=== PATIENT | female | born 1985 | race Caucasian/White ===

== ENCOUNTER 2019-08-15 07:57 | Emergency (ER) | payer BC, OTHER ==
[2019-08-15] MEDS ORDERED: HYDROCODONE/APAP 10/325 TAB ONE (08:58)
[2019-08-15] MEDS ORDERED: KETOROLAC 30 MG/ML INJ ONE (08:59)
[2019-08-15] MEDS ORDERED: DIAZEPAM 5 MG TABLET ONE (08:59)
[2019-08-15] MEDS ORDERED: ONDANSETRON 4 MG (ODT) TAB ONE (08:59)
--- NOTE | 2019-08-15 09:44 | ER ---
Nurse's Notes [facility] Name: Denise Plata Age: 33 yrs Sex: Female : 1985 Arrival Date: 08/15/2019 Time: 07:58 Bed 15 Private MD: Clyde White Diagnosis: Low back pain Presentation: 08/15 08:08 Presenting complaint: Patient states: "yesterday I was bending over to get a load of aa5 laundry from the washer and I felt my back give out". Pt denies fall, reports pain to lower back that is worse to R lower back. 08:08 Transition of care: patient was not received from another setting of care. Onset of aa5 symptoms was August 14, 2019. Risk Assessment: Do you want to hurt yourself or someone else? Patient reports no desire to harm self or others. Initial Sepsis Screen: Does the patient meet any 2 criteria? No. Patient's initial sepsis screen is negative. Does the patient have a suspected source of infection? No. Patient's initial sepsis screen is negative. Care prior to arrival: None. 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 - Social history:: Smoking status: Patient/guardian denies using tobacco. - Ebola Screening: : No symptoms or risks identified at this time. - Family history:: not pertinent. Screenin:15 Abuse screen: Denies threats or abuse. Nutritional screening: No deficits noted. aa5 Tuberculosis screening: No symptoms or risk factors identified. Fall Risk None identified. Assessment: 08:15 General: Appears uncomfortable, Behavior is calm, cooperative. Pain: Complains of pain aa5 in lumbar area, left low back and right low back Pain does not radiate. Pain currently is 3 out of 10 on a pain scale. at worst was 7 out of 10 on a pain scale. Quality of pain is described as sharp, shooting, Pain began 1 day ago. Is continuous, Aggravated by increased activity. Neuro: Level of Consciousness is awake, alert, obeys commands, Oriented to person, place, time, situation. Cardiovascular: Patient's skin is warm and dry. Respiratory: Airway is patent Respiratory effort is even, unlabored, Respiratory pattern is regular, symmetrical. GI: No signs and/or symptoms were reported involving the gastrointestinal system. : No signs and/or symptoms were reported regarding the genitourinary system. EENT: No signs and/or symptoms were reported regarding the EENT system. Derm: Skin is pink, warm \\T\\ dry. Musculoskeletal: Range of motion: intact in all extremities. 10:02 Reassessment: Patient appears in no apparent distress at this time. Patient is alert, ca1 oriented x 3, equal unlabored respirations, skin warm/dry/pink. Vital Signs: 08:11 BP 118 / 70; Pulse 89; Resp 16 S; Temp 98.2(O); Pulse Ox 100% on R/A; Weight 72.57 kg aa5 (R); Height 5 ft. 3 in. (160.02 cm) (R); Pain 3/10; 09:47 BP 112 / 80; Pulse 67; Resp 15; Temp 98.0(O); Pulse Ox 99% on R/A; mh5 10:20 BP 108 / 64; Pulse 76; Resp 17 S; Pulse Ox 100% on R/A; ca1 08:11 Body Mass Index 28.34 (72.57 kg, 160.02 cm) aa5 ED Course: 07:58 Patient arrived in ED. as 07:58 Clyde White is Private Physician. as 08:08 Arm band placed on Patient placed in an exam room, on a stretcher. aa5 08:10 Vishal Blankenship MD is Attending Physician. enid 08:28 Lyla Becker, ZORAIDA is Primary Nurse. aa5 08:30 Triage completed. aa5 09:11 Lumbar Spine (3 Views) XRAY In Process Unspecified. EDMS 09:47 Milton Flores MD is Referral Physician. enid 09:48 Patient has correct armband on for positive identification. Bed in low position. Call 5 light in reach. Side rails up X 1. Warm blanket given. Pulse ox on. NIBP on. 10:21 Patient did not have IV access during this emergency room visit. ca1 10:21 No provider procedures requiring assistance completed. ca1 Administered Medications: 09:02 Drug: [place] 10 mg-325 mg 1 tabs Route: PO; aa5 10:19 Follow up: Response: No adverse reaction; Pain is decreased; RASS: Alert and Calm (0) ca1 09:02 Drug: Zofran 4 mg Route: PO; aa5 10:19 Follow up: Response: No adverse reaction; Nausea is decreased; RASS: Alert and Calm (0) ca1 09:03 Drug: TORadol 60 mg Route: IM; Site: right gluteus; aa5 10:19 Follow up: Response: No adverse reaction; Pain is decreased ca1 09:03 Drug: Valium 5 mg Route: PO; aa5 10:19 Follow up: Response: No adverse reaction; Pain is decreased; RASS: Alert and Calm (0) ca1 Outcome: 09:43 Discharge ordered by . enid 10:21 Discharged to home ambulatory, with significant other. ca1 10:21 Condition: stable 10:21 Discharge instructions given to patient, Instructed on discharge instructions, follow up and referral plans. no drinking with medication, no driving heavy equipment, medication usage, Demonstrated understanding of instructions, follow-up care, medications, Prescriptions given X 4. 10:21 Patient left the ED. ca1 Signatures: Dispatcher [employer] EDMS Vishal Blankenship MD MD cha Martinez, Amelia as Calderon, Audri, RN RN Haylee Soto [facility] Michelle Dominique RN RN ca1 Corrections: (The following items were deleted from the chart) 08:29 07:58 Arm band placed on [place] [id number]
--- NOTE | 2019-08-15 09:45 | EDPHYS ---
Physician Documentation [facility] Name: Denise Plata Age: 33 yrs Sex: Female : 1985 Arrival Date: 08/15/2019 Time: 07:58 Bed 15 Private MD: Clyde White ED Physician Vishal Blankenship HPI: 08/15 08:39 This 33 yrs old Female presents to ER via Ambulatory with complaints of Back enid Pain. 08:39 The patient presents with pain that is acute, and decreased range of motion. The enid symptoms are located in the low back. Onset: The symptoms/episode began/occurred 2 day(s) ago. The pain does not radiate. Associated signs and symptoms: The patient has no apparent associated signs or symptoms. Modifying factors: The patient symptoms are alleviated by remaining still, rest, the patient symptoms are aggravated by any movement, bending. Severity of symptoms: At their worst the symptoms were moderate. The patient has not experienced similar symptoms in the past. 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 - Social history:: Smoking status: Patient/guardian denies using tobacco. - Ebola Screening: : No symptoms or risks identified at this time. - Family history:: not pertinent. ROS: 08:39 Constitutional: Negative for fever, chills, and weight loss, Eyes: Negative for injury, enid pain, redness, and discharge, ENT: Negative for injury, pain, and discharge, Neck: Negative for injury, pain, and swelling, Cardiovascular: Negative for chest pain, palpitations, and edema, Respiratory: Negative for shortness of breath, cough, wheezing, and pleuritic chest pain, Abdomen/GI: Negative for abdominal pain, nausea, vomiting, diarrhea, and constipation, : Negative for injury, bleeding, discharge, and swelling, MS/Extremity: Negative for injury and deformity, Skin: Negative for injury, rash, and discoloration, Psych: Negative for depression, anxiety, suicide ideation, homicidal ideation, and hallucinations, Allergy/Immunology: Negative for hives, rash, and allergies, Endocrine: Negative for neck swelling, polydipsia, polyuria, polyphagia, and marked weight changes, Hematologic/Lymphatic: Negative for swollen nodes, abnormal bleeding, and unusual bruising. 08:39 Back: Positive for decreased range of motion, pain at rest, pain with movement, of the left low back, left mid back, right mid back and right low back. Exam: 08:39 Constitutional: This is a well developed, well nourished patient who is awake, alert, enid and in no acute distress. Head/Face: Normocephalic, atraumatic. Eyes: Pupils equal round and reactive to light, extra-ocular motions intact. Lids and lashes normal. Conjunctiva and sclera are non-icteric and not injected. Cornea within normal limits. Periorbital areas with no swelling, redness, or edema. ENT: Nares patent. No nasal discharge, no septal abnormalities noted. Tympanic membranes are normal and external auditory canals are clear. Oropharynx with no redness, swelling, or masses, exudates, or evidence of obstruction, uvula midline. Mucous membranes moist. Neck: Trachea midline, no thyromegaly or masses palpated, and no cervical lymphadenopathy. Supple, full range of motion without nuchal rigidity, or vertebral point tenderness. No Meningismus. Chest/axilla: Normal chest wall appearance and motion. Nontender with no deformity. No lesions are appreciated. Cardiovascular: Regular rate and rhythm with a normal S1 and S2. No gallops, murmurs, or rubs. Normal PMI, no JVD. No pulse deficits. Respiratory: Lungs have equal breath sounds bilaterally, clear to auscultation and percussion. No rales, rhonchi or wheezes noted. No increased work of breathing, no retractions or nasal flaring. Abdomen/GI: Soft, non-tender, with normal bowel sounds. No distension or tympany. No guarding or rebound. No evidence of tenderness throughout. Skin: Warm, dry with normal turgor. Normal color with no rashes, no lesions, and no evidence of cellulitis. MS/ Extremity: Pulses equal, no cyanosis. Neurovascular intact. Full, normal range of motion. Neuro: Awake and alert, GCS 15, oriented to person, place, time, and situation. Cranial nerves II-XII grossly intact. Motor strength 5/5 in all extremities. Sensory grossly intact. Cerebellar exam normal. Normal gait. Psych: Awake, alert, with orientation to person, place and time. Behavior, mood, and affect are within normal limits. 08:39 Back: pain, that is moderate, ROM is painful, normal spinal alignment noted, CVA tenderness, is absent, muscle spasm, is appreciated in the left low back, left mid back, right mid back and right low back. Vital Signs: 08:11 BP 118 / 70; Pulse 89; Resp 16 S; Temp 98.2(O); Pulse Ox 100% on R/A; Weight 72.57 kg aa5 (R); Height 5 ft. 3 in. (160.02 cm) (R); Pain 3/10; 09:47 BP 112 / 80; Pulse 67; Resp 15; Temp 98.0(O); Pulse Ox 99% on R/A; mh5 10:20 BP 108 / 64; Pulse 76; Resp 17 S; Pulse Ox 100% on R/A; ca1 08:11 Body Mass Index 28.34 (72.57 kg, 160.02 cm) aa MDM: 08:10 Patient medically screened. [facility] 08:41 Data reviewed: vital signs, nurses notes, lab test result(s), radiologic studies, plain enid films. 08/15 08:27 Order name: Urine Dipstick--Ancillary (enter results) 08/15 08:27 Order name: Urine --Ancillary (enter results) 08/15 08:39 Order name: Lumbar Spine (3 Views) XRAY [facility] 08/15 08:48 Order name: Urine Dipstick-Ancillary (obtain specimen); Complete Time: 08:49 aa5 Administered Medications: 09:02 Drug: [place] 10 mg-325 mg 1 tabs Route: PO; aa5 10:19 Follow up: Response: No adverse reaction; Pain is decreased; RASS: Alert and Calm (0) ca1 09:02 Drug: Zofran 4 mg Route: PO; aa5 10:19 Follow up: Response: No adverse reaction; Nausea is decreased; RASS: Alert and Calm (0) ca1 09:03 Drug: TORadol 60 mg Route: IM; Site: right gluteus; aa5 10:19 Follow up: Response: No adverse reaction; Pain is decreased ca1 09:03 Drug: Valium 5 mg Route: PO; aa5 10:19 Follow up: Response: No adverse reaction; Pain is decreased; RASS: Alert and Calm (0) ca1 Disposition: 08/15/19 09:43 Discharged to Home. Impression: Low back pain. - Condition is Stable. - Discharge Instructions: Back Pain, Adult, Musculoskeletal Pain, Back Injury Prevention, [id number], Back Pain, Adult, Hket-vr-[id number]. - Prescriptions for Ibuprofen 600 mg Oral Tablet - take 1 tablet by ORAL route every 6 hours As needed take with food; 30 tablet. Tylenol- Codeine #3 300-30 mg Oral Tablet - take 2 tablet by ORAL route every 6 hours As needed; 30 tablet. Valium 5 mg Oral Tablet - take 1 tablet by ORAL route every 8 hours As needed; 20 tablet. Medrol (Jaspreet) 4 mg Oral Tablets, Dose Pack - take 1 tablet by ORAL route as directed - follow package instructions; 1 packet. - Medication Reconciliation Form, Thank You Letter, Antibiotic Education, Prescription Opioid Use form. - Follow up: Private Physician; When: 2 - 3 days; Reason: Recheck today's complaints, Continuance of care, Re-evaluation by your physician. Follow up: Milton Flores MD; When: 5 - 6 days; Reason: Recheck today's complaints, Continuance of care, Re-evaluation by your physician. - Problem is new. - Symptoms have improved. Signatures: Dispatcher [employer] Vishal Vuong MD MD cha Calderon, Audri, RN RN aa5 Michelle Dominique RN RN ca1 Corrections: (The following items were deleted from the chart) 09:47 09:43 08/15/2019 09:43 Discharged to Home. Impression: Low back pain. Condition is enid Stable. Discharge Instructions: Back Pain, Adult, Musculoskeletal Pain, Back Injury Prevention, Sdfc-uz-[id number], Back Pain, Adult, Qogj-fl-Mgxl. Prescriptions for Ibuprofen 600 mg Oral Tablet - take 1 tablet by ORAL route every 6 hours As needed take with food; 30 tablet, Tylenol-Codeine #3 300-30 mg Oral Tablet - take 2 tablet by ORAL route every 6 hours As needed; 30 tablet, Valium 5 mg Oral Tablet - take 1 tablet by ORAL route every 8 hours As needed; 20 tablet, Medrol (Jaspreet) 4 mg Oral Tablets, Dose Pack - take 1 tablet by ORAL route as directed - follow package instructions; 1 packet. and Forms are Medication Reconciliation Form, Thank You Letter, Antibiotic Education, Prescription Opioid Use. Follow up: Private Physician; When: 2 - 3 days; Reason: Recheck today's complaints, Continuance of care, Re-evaluation by your physician. Problem is new. Symptoms have improved. [facility] 10:21 09:47 08/15/2019 09:43 Discharged to Home. Impression: Low back pain. Condition is ca1 Stable. Discharge Instructions: Back Pain, Adult, Musculoskeletal Pain, Back Injury Prevention, Cgey-bp-Rpsq, Back Pain, Adult, Mggc-va-Qjat. Prescriptions for Ibuprofen 600 mg Oral Tablet - take 1 tablet by ORAL route every 6 hours As needed take with food; 30 tablet, Tylenol-Codeine #3 300-30 mg Oral Tablet - take 2 tablet by ORAL route every 6 hours As needed; 30 tablet, Valium 5 mg Oral Tablet - take 1 tablet by ORAL route every 8 hours As needed; 20 tablet, Medrol (Jaspreet) 4 mg Oral Tablets, Dose Pack - take 1 tablet by ORAL route as directed - follow package instructions; 1 packet. and Forms are Medication Reconciliation Form, Thank You Letter, Antibiotic Education, Prescription Opioid Use. Follow up: Private Physician; When: 2 - 3 days; Reason: Recheck today's complaints, Continuance of care, Re-evaluation by your physician. Follow up: Milton Flores; When: 5 - 6 days; Reason: Recheck today's complaints, Continuance of care, Re-evaluation by your physician. Problem is new. Symptoms have improved. [facility]
--- NOTE | 2019-08-15 09:50 | RAD REPORT ---
EXAM DESCRIPTION: RAD - Lumbar Spine 3 Views - 08/15/2019 9:19 am CLINICAL HISTORY: Acute onset back pain following bending and lifting maneuver COMPARISON: None. FINDINGS: A three-view lumbar spine examination was performed. Lumbar bodies are normal in height an d alignment. No fracture or acute bony process seen. No disc space narrowing. Relative narrowing at t he L5-S1 disc space can occur normally. No pars defect or other posterior element acute finding seen. SI joints are normal. IMPRESSION: No acute or significant lumbar spine finding identifiable. Concerns for disc herniation, central canal abnormality or occult bone process can be addressed with MR imaging.
[2019-08-15 10:58] LABS: Urine Blood TRACE (NEG); Urine Glucose NEGATIVE (NEG); Urine Protein NEGATIVE (NEG); Urine Specific Gravity 1.025 (1.005-1.030)
== END 2019-08-15 10:21 | disposition home or self-care (01) ==
LOC: ER 07:57
DX: M54.5 Low back pain (principal); Z88.0 Allergy status to penicillin
CPT/HCPCS: 72100; 81003; 81025; 96372; 99284

== ENCOUNTER 2021-04-05 10:32 | Emergency (ER) | payer OTHER ==
[2021-04-05 11:53] LABS: Absolute Lymphocytes (CBC) 1.2 K/uL (0.7-4.9); Basophils % 0.8 % (0-1.3); Hematocrit 43.2 % (36.0-45.0); MPV 7.4 fL (7.6-11.3); RBC Red Blood Cell Count 4.76 M/uL (3.86-4.86)
[2021-04-05 11:58] LABS: ALT/SGPT 60 U/L (12-78); AST/SGOT 23 U/L (15-37); Albumin 4.2 g/dL (3.4-5.0); Alkaline Phosphatase 58 U/L (45-117); BUN Blood Urea Nitrogen 10 mg/dL (7-18); Bicarbonate 29 mmol/L (21-32); Bilirubin Direct 0.3 mg/dL (0-0.2); Bilirubin Total 1.7 mg/dL (0.2-1.0); Glucose Level 94 mg/dL (74-106); Lipase 50 U/L (73-393); Potassium 3.8 mmol/L (3.5-5.1); Protein, Total 7.7 g/dL (6.4-8.2); Sodium Level 137 mmol/L (136-145)
--- NOTE | 2021-04-05 15:21 | RAD REPORT ---
EXAM DESCRIPTION: US - Abdomen Exam Limited - 04/05/2021 3:09 pm CLINICAL HISTORY: r/o GB;Abd pain COMPARISON: No comparisons FINDINGS: The gallbladder demonstrates no gallstones. No pericholecystic fluid or gallbladder wall t hickening. The common bile duct is normal measuring 4 mm. The liver demonstrates no findings of intrahepatic biliary dilatation. IMPRESSION: Negative for cholelithiasis or acute cholecystitis. No biliary ductal dilatation.
--- NOTE | 2021-04-05 15:22 | EDPHYS ---
Physician Documentation [facility] Name: Denise Plata Age: 35 yrs Sex: Female : 1985 Arrival Date: 04/05/2021 Time: 10:34 Bed DX1 Private MD: Clyde White ED Physician Vishal Blankenship HPI: 04/05 15:13 This 35 yrs old Female presents to ER via Ambulatory with complaints of jr8 Abdominal Pain, Nausea. 15:13 The patient presents with abdominal pain in the upper abdomen. Onset: The jr8 symptoms/episode began/occurred suddenly. The symptoms do not radiate. Associated signs and symptoms: Pertinent positives: nausea. The symptoms are described as crampy. Modifying factors: The symptoms are alleviated by nothing, the symptoms are aggravated by nothing. Severity of pain: At its worst the pain was moderate in the emergency department the pain has improved. The patient has not experienced similar symptoms in the past. The patient has not recently seen a physician. 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 - Social history:: Smoking status: Patient denies any tobacco usage or history of. ROS: 15:13 Eyes: Negative for injury, pain, redness, and discharge, ENT: Negative for injury, jr8 pain, and discharge, Neck: Negative for injury, pain, and swelling, Cardiovascular: Negative for chest pain, palpitations, and edema, Respiratory: Negative for shortness of breath, cough, wheezing, and pleuritic chest pain, Back: Negative for injury and pain, MS/Extremity: Negative for injury and deformity, Skin: Negative for injury, rash, and discoloration, Neuro: Negative for headache, weakness, numbness, tingling, and seizure. 15:13 Abdomen/GI: Positive for abdominal pain, nausea, Negative for vomiting, diarrhea, abdominal distension, hematemesis, black/tarry stool, rectal bleeding. Exam: 15:13 Constitutional: This is a well developed, well nourished patient who is awake, alert, jr8 and in no acute distress. Cardiovascular: Regular rate and rhythm with a normal S1 and S2. No gallops, murmurs, or rubs. Normal PMI, no JVD. No pulse deficits. Respiratory: Lungs have equal breath sounds bilaterally, clear to auscultation and percussion. No rales, rhonchi or wheezes noted. No increased work of breathing, no retractions or nasal flaring. Back: No spinal tenderness. No costovertebral tenderness. Full range of motion. Skin: Warm, dry with normal turgor. Normal color with no rashes, no lesions, and no evidence of cellulitis. MS/ Extremity: Pulses equal, no cyanosis. Neurovascular intact. Full, normal range of motion. Neuro: Awake and alert, GCS 15, oriented to person, place, time, and situation. Motor strength 5/5 in all extremities. Sensory grossly intact. 15:13 Abdomen/GI: Inspection: abdomen appears normal, Bowel sounds: active, all quadrants, Palpation: soft, in all quadrants, mild abdominal tenderness, in the epigastric area, mass, is not appreciated, rebound tenderness, is not appreciated, voluntary guarding, is not appreciated, involuntary guarding, is not appreciated, no appreciated organomegaly, Indicators: McBurney's point is not tender, Horowitz's sign is negative, Rovsing's sign is negative. Vital Signs: 11:08 BP 112 / 95; Pulse 118; Resp 15; Temp 98; Pulse Ox 99% ; Weight 79.38 kg; Height 5 ft. jl7 3 in. (160.02 cm); Pain 6/10; 11:08 Body Mass Index 31.00 (79.38 kg, 160.02 cm) jl7 MDM: 13:59 Patient medically screened. jr8 15:13 Data reviewed: vital signs, nurses notes, lab test result(s), radiologic studies, jr8 ultrasound. Data interpreted: Pulse oximetry: on room air is 99 %. Interpretation: normal. Counseling: I had a detailed discussion with the patient and/or guardian regarding: the historical points, exam findings, and any diagnostic results supporting the discharge/admit diagnosis, lab results, radiology results, the need for outpatient follow up, a medical receptionist assistant, to return to the emergency department if symptoms worsen or persist or if there are any questions or concerns that arise at home. 15:13 Special discussion: Based on the patient's Hx, exam, and Dx evaluation, there is no jr8 indication for emergent surgery or inpatient Tx. It is understood by the patient/guardian that if the Sx's persist or worsen they need to return immediately for re-evaluation. 15:13 ED course: Patient feeling better at this time. Discussed with patient that there is no jr8 acute findings on the labs or on the ultrasound. Would recommend following up with GI at this time for further evaluation. If she were to run fever get worse come back for further evaluation. Patient with this plan at this time. 04/05 11:16 Order name: Basic Metabolic Panel; Complete Time: 14:10 7 04/05 11:16 Order name: CBC with Diff; Complete Time: 14:10 [facility] 04/05 11:16 Order name: Hepatic Function; Complete Time: 14:10 7 04/05 11:16 Order name: Lipase; Complete Time: 14:10 7 04/05 11:16 Order name: IV Saline Lock; Complete Time: 11:24 7 04/05 14:31 Order name: US Abdomen Limited; Complete Time: 15:24 8 04/05 11:16 Order name: Labs collected and sent; Complete Time: 11:24 Administered Medications: No medications were administered Disposition: 04/06 09:18 Co-signature as Attending Physician, Vishal Blankenship MD I agree with the assessment and enid plan of care. Disposition Summary: 04/05/21 15:21 Discharge Ordered Location: Home jr8 Problem: new jr8 Symptoms: have improved jr8 Condition: Stable jr8 Diagnosis - Epigastric pain jr8 - Nausea jr8 Followup: jr8 - With: Timi Rome MD - When: 5 - 6 days - Reason: Recheck today's complaints, Continuance of care, Re-evaluation by your physician Discharge Instructions: - Discharge Summary Sheet jr8 - Abdominal Pain, Adult jr8 - Nausea, Adult jr8 Forms: - Medication Reconciliation Form jr8 - Thank You Letter jr8 - Antibiotic Education jr8 - Prescription Opioid Use jr8 Prescriptions: - promethazine 25 mg Oral Tablet - take 1 tablet by ORAL route every 6 hours As needed; 20 tablet; Refills: 0, jr8 Product Selection Permitted - dicyclomine 20 mg Oral Tablet - take 1 tablet by ORAL route 3 times per day As needed; 21 tablet; Refills: 0, jr8 Product Selection Permitted Signatures: Dispatcher [employer] Vishal Vuong MD MD cha Roszak, Josh, PA PA jr8 Rox Barraza RN RN jl7
--- NOTE | 2021-04-05 15:22 | ER ---
Nurse's Notes [facility] Name: Denies Plata Age: 35 yrs Sex: Female : 1985 Arrival Date: 04/05/2021 Time: 10:34 Bed DX1 Private MD: Clyde White Diagnosis: Epigastric pain;Nausea Presentation: 04/05 11:08 Chief complaint: Patient states: Intermittent sharp, shooting upper abdominal pain x5 jl7 hours, reports nausea with pain. Coronavirus screen: Vaccine status: Patient reports receiving the 2nd dose of the covid vaccine. Date November 18, 2020 Pfizer At this time, the client does not indicate any symptoms associated with coronavirus-19. Ebola Screen: No symptoms or risks identified at this time. Initial Sepsis Screen: Does the patient meet any 2 criteria? No. Patient's initial sepsis screen is negative. Does the patient have a suspected source of infection? No. Patient's initial sepsis screen is negative. Risk Assessment: Do you want to hurt yourself or someone else? Patient reports no desire to harm self or others. Onset of symptoms was April 05, 2021 at 06:30. 11:08 Method Of Arrival: Ambulatory jl7 11:08 Acuity: FRANCISCO JAVIER 3 jl7 Triage Assessment: 11:12 General: Appears in no apparent distress. uncomfortable, Behavior is calm, cooperative, jl7 appropriate for age. Pain: Complains of pain in epigastric area, right upper quadrant and left upper quadrant Pain currently is 6 out of 10 on a pain scale. at worst was 10 out of 10 on a pain scale. Neuro: Level of Consciousness is awake, alert, obeys commands, Oriented to person, place, time, situation. Cardiovascular: Patient's skin is warm and dry. Respiratory: Airway is patent Respiratory effort is even, unlabored, Respiratory pattern is regular, symmetrical. GI: Reports upper abdominal pain, nausea. Derm: Skin is pink, warm \T\ dry. 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 - Social history:: Smoking status: Patient denies any tobacco usage or history of. Vital Signs: 11:08 BP 112 / 95; Pulse 118; Resp 15; Temp 98; Pulse Ox 99% ; Weight 79.38 kg; Height 5 ft. jl7 3 in. (160.02 cm); Pain 6/10; 11:08 Body Mass Index 31.00 (79.38 kg, 160.02 cm) jl7 ED Course: 10:34 Patient arrived in ED. as 10:34 Clyde White is Private Physician. as 11:12 Triage completed. jl7 11:12 Arm band placed on right wrist. Patient placed in waiting room, Patient notified of jl7 wait time. 11:24 Inserted saline lock: 20 gauge in left antecubital area, using aseptic technique. Blood mt collected. 13:59 Emory Swann PA is PHCP. jr8 13:59 Vishal Blankenship MD is Attending Physician. jr8 15:01 US Abdomen Limited In Process Unspecified. EDMS 15:21 Timi Rome MD is Referral Physician. jr8 Administered Medications: No medications were administered Outcome: 15:21 Discharge ordered by . jr8 15:41 Patient left the ED. aa5 Signatures: Dispatcher [employer] EDMS Maria Esther Carpio Audri RN RN aa5 Emory Swann PA PA jr8 Rox Barraza RN RN jl7 Montse Triana mt
[2021-04-05 15:47] VITALS: BP 112/95; TEMP 98; O2SAT 99
== END 2021-04-05 15:41 | disposition home or self-care (01) ==
LOC: ER 10:32
DX: R11.0 Nausea (principal); E07.9 Disorder of thyroid, unspecified; Z88.0 Allergy status to penicillin
CPT/HCPCS: 36415; 76705; 80048; 80076; 83690; 85025; 99283

== ENCOUNTER 2021-08-26 16:41 | Emergency (ER) | payer OTHER ==
[2021-08-26 17:39] LABS: Absolute Lymphocytes (CBC) 1.2 K/uL (0.7-4.9); Hematocrit 37.3 % (36.0-45.0); Lymphocytes % 16.4 % (15.3-44.8); MPV 7.5 fL (7.6-11.3); RBC Red Blood Cell Count 4.17 M/uL (3.86-4.86)
[2021-08-26] MEDS ORDERED: MORPHINE 4 MG/ML SYR ONE (17:42)
[2021-08-26] MEDS ORDERED: ONDANSETRON 4 MG/2 ML VIAL ONE (17:42)
[2021-08-26] MEDS ORDERED: NACHLORIDE 0.45% 1,000 ML IV ONE (17:42)
[2021-08-26 17:43] LABS: Protime INR 0.97
[2021-08-26] MEDS ORDERED: NA CHLORIDE 0.9% 1,000 ML ONE (17:43)
[2021-08-26 17:52] LABS: BUN Blood Urea Nitrogen 8 mg/dL (7-18); Bicarbonate 29 mmol/L (21-32); Glucose Level 124 mg/dL (74-106); Potassium 3.4 mmol/L (3.5-5.1); Sodium Level 139 mmol/L (136-145)
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
[2021-08-26] MEDS ORDERED: HYDROCODONE/APAP 10/325 TAB ONE (20:19)
[2021-08-26 20:46] VITALS: TEMP 97.7; O2SAT 100
[2021-08-26 20:47] VITALS: BP 135/84
== END 2021-08-26 20:21 | disposition home or self-care (01) ==
LOC: ER 16:41
DX: S32.592A Other specified fracture of left pubis, initial encounter for closed fracture (principal); V03.90XA Pedestrian on foot injured in collision with car, pick-up truck or van, unspecified whether traffic or nontraffic accident, initial encounter; Z88.0 Allergy status to penicillin; Z88.2 Allergy status to sulfonamides
CPT/HCPCS: 85025; 80048; 36415; 86900; 86850; 85610; 86901; 85730; 70450; 72125; 71260; 74177; 71045; 72170; 73552; 96375; 96374; 99284; Q9967; J7030; J2405

== ENCOUNTER 2024-09-13 05:10 | Emergency (ER) | payer OTHER ==
[2024-09-13] MEDS ORDERED: dexAMETHasone 10 MG/ML VIAL ONE (06:57)
[2024-09-13] MEDS ORDERED: HYDROCODONE/APAP 5/325 MG TAB ONE (06:58)
[2024-09-13] MEDS ORDERED: KETOROLAC 30 MG/ML INJ ONE (06:58)
--- NOTE | 2024-09-13 07:24 | RAD REPORT ---
Extremity Venous [employer] CLINICAL INDICATION: Female, 38 years old.PAIN RIGHT TECHNIQUE: Complete duplex sonography of the lower extremity veins was performed of the affected limb . The examination included compression for vein patency, color Doppler imaging and flow augmentation in response to distal compression of the distal external iliac, common femoral, femoral, popliteal, peroneal, tibial and great saphenous veins. [id number]. COMPARISON: No prior exams FINDINGS: Duplex sonography imaging demonstrates all deep veins examined to be fully compressible with spontane ous, phasic and augmented flow in the affected limb. IMPRESSION: No evidence of deep venous thrombosis in the right lower extremity.
--- NOTE | 2024-09-13 07:34 | EDPHYS ---
Physician Documentation [facility] Name: Denise Plata Age: 38 yrs Sex: Female : 1985 Arrival Date: 09/13/2024 Time: 05:10 Bed 2 Private MD: ED Physician Edward Trinidad HPI: 09/13 07:16 This 38 yrs old Female presents to ER via Ambulatory with complaints of Leg Pain, rt Numbness. 07:16 Patient presents to the ED with a right thigh pain beginning overnight. She took rt gabapentin, Flexeril to no relief. Reports that the pain is a spasm and cramp-like in nature. She denies any trauma to the leg. Denies worsening back pain. Denies other acute complaints, symptoms are aching nature, not otherwise radiating, moderate severity, no other aggravating leaving factors.. Historical: - Allergies: 06:11 PENICILLINS; br2 06:11 Sulfa (Sulfonamide Antibiotics); br2 - PMHx: 06:11 ADD/OCD; allergy induced asthma; anxiety/depression; gluten intolerance; Thyroid br2 problem; - Immunization history:: Adult Immunizations up to date. - Infectious Disease History:: Denies. - Social history:: Smoking status: Patient denies any tobacco usage or history of. ROS: 07:16 Constitutional: Negative for fever, chills, and weight loss, Cardiovascular: Negative rt for chest pain, palpitations, and edema, Respiratory: Negative for shortness of breath, cough, wheezing, and pleuritic chest pain, Abdomen/GI: Negative for abdominal pain, nausea, vomiting, diarrhea, and constipation, Skin: Negative for injury, rash, and discoloration, Neuro: Negative for headache, weakness, numbness, tingling, and seizure, 07:16 MS/extremity: Positive for pain, Negative for injury or acute deformity, Exam: 07:16 Constitutional: This is a well developed, well nourished patient who is awake, alert, rt and in no acute distress. Head/Face: Normocephalic, atraumatic. Chest/axilla: Normal chest wall appearance and motion. Nontender with no deformity. No lesions are appreciated. Cardiovascular: Regular rate and rhythm with a normal S1 and S2. No gallops, murmurs, or rubs. Normal PMI, no JVD. No pulse deficits. Respiratory: Lungs have equal breath sounds bilaterally, clear to auscultation and percussion. No rales, rhonchi or wheezes noted. No increased work of breathing, no retractions or nasal flaring. Abdomen/GI: Soft, non-tender, with normal bowel sounds. No distension or tympany. No guarding or rebound. No evidence of tenderness throughout. Skin: Warm, dry with normal turgor. Normal color with no rashes, no lesions, and no evidence of cellulitis. Neuro: Awake and alert, GCS 15, oriented to person, place, time, and situation. Cranial nerves II-XII grossly intact. Motor strength 5/5 in all extremities. Sensory grossly intact. Cerebellar exam normal. Normal gait. 07:16 Musculoskeletal/extremity: No focal areas of tenderness, swelling to the right leg. Pulses, motor, sensation intact. Vital Signs: 06:08 BP 112 / 78; Pulse 112; Resp 18; Temp 97.2; Pulse Ox 100% on R/A; Weight 79.38 kg; br2 Height 5 ft. 3 in. ; Pain 8/10; 07:55 BP 114 / 70; Pulse 100; Resp 16 S; Pulse Ox 99% on R/A; Pain 4/10; kc6 06:08 Body Mass Index 31.00 (79.38 kg, 160.02 cm) br2 06:08 Pain Scale: Adult br2 07:55 Pain Scale: Adult kc6 MDM: 06:19 Medical Screening Exam initiated rt 07:13 Data reviewed: vital signs, nurses notes. ED course: Patient signed out rehab. ec2 Physician, brief arrives today for leg numbness and discomfort, likely musculoskeletal in nature. Plan to follow-up DVT ultrasound.. 09/13 06:31 Order name: Extremity Venous [employer] ; Complete Time: 07:33 rt Administered Medications: 07:06 Drug: Ketorolac IM 15 mg IM once Route: IM; Site: left deltoid; jj7 07:54 Follow up: Response: No adverse reaction; Pain is decreased 6 07:07 Drug: HYDROcodone-acetaminophen PO 5 mg-325 mg 1 tabs PO once Route: PO; jj7 07:54 Follow up: Response: No adverse reaction; Pain is decreased; RASS: Alert and Calm (0) [facility] 07:07 Drug: Dexamethasone IM 10 mg IM once Route: IM; Site: left deltoid; jj7 07:54 Follow up: Response: No adverse reaction kc6 07:54 Drug: Diazepam PO 5 mg PO once Route: PO; kc6 Disposition Summary: 09/13/24 07:34 Discharge Ordered Notes: Location: Home ec2 Condition: Stable ec2 Diagnosis - Pain in right leg ec2 Followup: ec2 - With: Private Physician - When: - Reason: Re-evaluation by your physician Discharge Instructions: - Discharge Summary Sheet ec2 - Musculoskeletal Pain ec2 Forms: - Medication Reconciliation Form ec2 - Antibiotic Education ec2 - Prescription Opioid Use ec2 - Patient Portal Instructions ec2 - Leadership Thank You Letter ec2 Prescriptions: - methocarbamol 500 mg Oral tablet - take 1 tablet ORAL route 4 times per day; 15 tablet; Refills: 0, Product ec2 Selection Permitted Signatures: Dispatcher [employer] Alycia Newberry RN RN kc6 Jessica Ellis RN RN jj7 Beto Wilson MD MD rt Edward Trinidad MD MD ec2 Charis Astudillo RN RN br2 Corrections: (The following items were deleted from the chart) 07:34 07:34 Pain in left leg ec2 ec2
--- NOTE | 2024-09-13 07:34 | ER ---
Nurse's Notes [facility] Name: Denise Plata Age: 38 yrs Sex: Female : 1985 Arrival Date: 09/13/2024 Time: 05:10 Bed 2 Private MD: Diagnosis: Pain in right leg Presentation: 09/13 06:08 Chief complaint: Patient states: PT STATE PAIN FROM RIGHT BUTTOCKS TO RLE....STARTED AT br2 7PM. Coronavirus screen: Client denies travel out of the [place] in the last 14 days. Ebola Screen: Patient denies exposure to infectious person. Initial Sepsis Screen: Does the patient meet any 2 criteria? No. Patient's initial sepsis screen is negative. Does the patient have a suspected source of infection? No. Patient's initial sepsis screen is negative. Risk Assessment: Do you want to hurt yourself or someone else? Patient reports no desire to harm self or others. Onset of symptoms was September 12, 2024 at 19:00. 06:08 Method Of Arrival: Ambulatory br2 06:08 Acuity: FRANCISCO JAVIER 4 br2 Historical: - Allergies: 06:11 PENICILLINS; br2 06:11 Sulfa (Sulfonamide Antibiotics); br2 - PMHx: 06:11 ADD/OCD; allergy induced asthma; anxiety/depression; gluten intolerance; Thyroid br2 problem; - Immunization history:: Adult Immunizations up to date. - Infectious Disease History:: Denies. - Social history:: Smoking status: Patient denies any tobacco usage or history of. Screenin:50 [facility] ED Fall Risk Assessment (Adult) History of falling in the last 3 months, jj7 including since admission No falls in past 3 months (0 pts) Confusion or Disorientation No (0 pts) Intoxicated or Sedated No (0 pts) Impaired Gait No (0 pts) Mobility Assist Device Used No (0 pt) Altered Elimination No (0 pt) Score/Fall Risk Level 0 - 2 = Low Risk Oriented to surroundings, Maintained a safe environment, Educated pt \T\ family on fall prevention, incl call for assistance when getting out of bed, Assessed \T\ reinforced patient's understanding of fall precautions. Abuse screen: Denies threats or abuse. Nutritional screening: No deficits noted. Tuberculosis screening: No symptoms or risk factors identified. Assessment: 06:50 General: Appears in no apparent distress. comfortable, Behavior is calm, cooperative, jj7 appropriate for age. Pain: Complains of pain in right leg. Musculoskeletal: Reports pain in right leg. Vital Signs: 06:08 BP 112 / 78; Pulse 112; Resp 18; Temp 97.2; Pulse Ox 100% on R/A; Weight 79.38 kg; br2 Height 5 ft. 3 in. ; Pain 8/10; 07:55 BP 114 / 70; Pulse 100; Resp 16 S; Pulse Ox 99% on R/A; Pain 4/10; kc6 06:08 Body Mass Index 31.00 (79.38 kg, 160.02 cm) br2 06:08 Pain Scale: Adult br2 07:55 Pain Scale: Adult kc6 ED Course: 05:11 Patient arrived in ED. jj6 05:13 Beto Wilson MD is Attending Physician. rt 06:10 Triage completed. br2 06:50 Bed in low position. Call light in reach. Adult w/ patient. Provided Education on: USE jj7 OF CALL TORRES. Warm blanket given. 07:00 Report received from ZORAIDA JAY. kc6 07:00 Pulse ox on. NIBP on. kc6 07:00 Arm band placed on. kc6 07:00 Patient maintains SpO2 saturation greater than 95% on room air. kc6 07:13 Attending Physician role handed off by Beto Wilson MD ec2 07:13 Edward Trinidad MD is Attending Physician. ec2 07:18 Extremity Venous Uni Ltd US In Process Unspecified. EDMS 07:55 No provider procedures requiring assistance completed. Patient did not have IV access kc6 during this emergency room visit. Administered Medications: 07:06 Drug: Ketorolac IM 15 mg IM once Route: IM; Site: left deltoid; jj7 07:54 Follow up: Response: No adverse reaction; Pain is decreased kc6 07:07 Drug: HYDROcodone-acetaminophen PO 5 mg-325 mg 1 tabs PO once Route: PO; jj7 07:54 Follow up: Response: No adverse reaction; Pain is decreased; RASS: Alert and Calm (0) kc6 07:07 Drug: Dexamethasone IM 10 mg IM once Route: IM; Site: left deltoid; jj7 07:54 Follow up: Response: No adverse reaction kc6 07:54 Drug: Diazepam PO 5 mg PO once Route: PO; kc6 Medication: 06:50 VIS not applicable for this client. jj7 Outcome: 07:34 Discharge ordered by . ec2 07:55 Discharged to home ambulatory, with significant other, kc6 07:55 Condition: improved 07:55 Discharge instructions given to patient, significant other, Instructed on discharge instructions, follow up and referral plans. medication usage, Demonstrated understanding of instructions, follow-up care, medications, Prescriptions given X 1, 07:56 Patient left the ED. kc6 Signatures: Dispatcher [employer] EDNV SusanSujatha calderon jj6 Alycia Whitehead RN RN kc6 Jessica Ellis RN RN jj7 Beto Wilson MD MD rt Corral, Edwin, MD MD ec2 Charis Astudillo RN RN br2
[2024-09-13] MEDS ORDERED: DIAZEPAM 5 MG TABLET ONE (07:50)
[2024-09-13 08:00] VITALS: TEMP 97.2
[2024-09-13 08:01] VITALS: BP 114/70; O2SAT 99
== END 2024-09-13 07:56 | disposition home or self-care (01) ==
LOC: ER 05:10
DX: M79.604 Pain in right leg (principal)
CPT/HCPCS: 93971; 96372; 99284; J1100